=== PATIENT | female | born 1950 | race Caucasian/White ===

== ENCOUNTER 2017-01-13 00:23 | Emergency (ER) | payer MEDICARE ==
[2017-01-13 01:12] LABS: BASO % 0.1 % (0-6); EOS % 0.4 % (0-6); GRAN % 77.9 % (47-80); HEMATOCRIT 42.7 % (35.0-47.0); HEMOGLOBIN 14.1 gm/dl (11.6-16.0); LYMPH % 15.8 % (16-45); MEAN CELL VOLUME 95.1 fl (81-97); MEAN CORPUSCULAR HEMOGLOBIN 31.4 pg (27-33); MEAN PLATELET VOLUME 10.7 fl (7.4-10.4); MONO % 5.8 % (0-9); PLATELET COUNT 276 K/uL (130-400); RED BLOOD COUNT 4.49 M/uL (3.80-5.40); RED CELL DISTRIBUTION WIDTH 13.2 % (11.5-14.5); WHITE BLOOD COUNT W/O DIFF 13.8 K/uL (4.2-12.2)
[2017-01-13 01:22] LABS: ANION GAP 8.1 (7-16); BLOOD UREA NITROGEN 39 mg/dL (7-17); CARBON DIOXIDE 28.9 mmol/L (22-30); CREATININE 0.7 mg/dL (0.52-1.04); EST GLOMERULAR FILTRATION RATE > 60 ml/min; GLUCOSE,RANDOM 104 mg/dL (70-110)
--- NOTE | 2017-01-13 01:44 | Emergency Department Record ---
History of Present Illness - General Chief Complaint: Abdominal Pain Stated Complaint: BOWEL PROBLEMS Time Seen by Provider: 01/13/17 00:53 Source: Patient, Family, EMS Mode of Arrival: EMS Limitations: No limitations - History of Present Illness Initial Comments: pt states she had a procedure on her back yesterday and now is having new weakness in r leg and is having trouble walking to the point that she has fallen twice. she also says she has some weakness in her r arm. she alsome has some pain in her lower l ribs that she has had for weeks. she also c/o of constipation and no bm for 1 1/2 weeks. MD Complaint: Other Onset/Timin -: Week(s) Location: LUQ, LLQ, RLQ Radiation: None Quality: Aching, Cramping Consistency: Constant Associated Symptoms: Constipation, Vomiting, Other (r sided weakness) - Related Data Patient : No Home Medications Medication Instructions Recorded Confirmed Last Taken Albuterol Sulfate [Ventolin Hfa] 2 puff INH BID 03/03/16 01/13/17 Unknown Budesonide/Formoterol Fumarate 2 puff INH BID 03/03/16 01/13/17 Unknown [Symbicort 160-4.5 Mcg Inhaler] Hydrocodone/Acetaminophen 1 tab PO QID 03/03/16 01/13/17 Unknown [Hydrocodon-Acetaminophn 10-325] Tiotropium [place] [Spiriva] 2 puff INH BID 03/03/16 01/13/17 Unknown Aspirin, Regular 325 mg PO DAILY 01/13/17 01/13/17 01/12/17 Bupropion HCl [Wellbutrin Sr] 100 mg PO DAILY 01/13/17 01/13/17 01/12/17 Ranitidine HCl [Zantac] 150 mg PO DAILY 01/13/17 01/13/17 01/12/17 Allergies Allergy/AdvReac Type Severity Reaction Status Date / Time Penicillins Allergy HIVES Verified 03/03/16 19:01 Travel Screening - Travel/Exposure Within Last 30 Days Have you traveled within the last 30 days?: No - Travel Symptoms Symptom Screening: None Review of Systems Reviewed: No additional complaints except as noted below Constitutional: Reports: As per HPI, Weakness. Denies: Chills, Fever, Malaise, Night sweats, Weight change Eyes: Reports: As per HPI. Denies: Eye discharge, Eye pain, Photophobia, Vision change ENT: Reports: As per HPI. Denies: Congestion, Dental pain, Ear pain, Epistaxis , Hearing loss, Throat pain Respiratory: Reports: As per HPI, Cough. Denies: Dyspnea, Hemoptysis, Stridor, Wheezes Cardiovascular: Reports: As per HPI. Denies: Arrhythmia, Chest pain, Dyspnea on exertion, Edema, Murmurs, Orthopnea, Palpitations, Paroxysmal nocturnal dyspnea, Rheumatic Fever, Syncope Endocrine: Reports: As per HPI. Denies: Fatigue, Heat or cold intolerance, Polydipsia, Polyuria Gastrointestinal: Reports: As per HPI, Constipation. Denies: Abdominal pain, Diarrhea, Hematemesis, Hematochezia, Melena, Nausea, Vomiting Genitourinary: Reports: As per HPI. Denies: Abnormal menses, Discharge, Dyspareunia, Dysuria, Frequency, Hematuria, Incontinence, Retention, Urgency Musculoskeletal: Reports: As per HPI. Denies: Arthralgia, Back pain, Gout, Joint swelling, Myalgia, Neck pain Skin: Reports: As per HPI. Denies: Bruising, Change in color, Change in hair/ nails, Lesions, Pruritus, Rash Neurological: Reports: As per HPI, Abnormal gait, Weakness. Denies: Confusion, Headache, Numbness, Paresthesias, Seizure, Tingling, Tremors, Vertigo Psychiatric: Reports: As per HPI. Denies: Anxiety, Auditory hallucinations, Depression, Homicidal thoughts, Suicidal thoughts, Visual hallucinations Hematological/Lymphatic: Reports: As per HPI. Denies: Anemia, Blood Clots, Easy bleeding, Easy bruising, Swollen glands Past Medical History - SOCIAL HISTORY Smoking Status: Current every day smoker - RESPIRATORY Hx Respiratory Disorders: Yes Hx COPD: Yes - CARDIOVASCULAR Hx Cardio Disorders: Yes Hx Hypertension: Yes - NEURO Hx Neuro Disorders: No - GI Hx GI Disorders: Yes Hx Reflux: Yes - Hx Genitourinary Disorders: No - ENDOCRINE Hx Endocrine Disorders: No - MUSCULOSKELETAL Hx Musculoskeletal Disorders: Yes Comment:: Injections-to back every 1-3mos - PSYCH Hx Psych Problems: No - HEMATOLOGY/ONCOLOGY Hx Hematology/Oncology Disorders: Yes Comment:: LUPUS Family Medical History Any Significant Family History?: Yes Hx Cancer: Father *Cancer Comment: spider cancer with father and brain with uncle *Heart Comment: unlce heart attack Physical Exam - General General Appearance: Alert, Oriented x3, Cooperative, Mild distress - Head Head exam: Normal inspection - Eye Eye exam: Normal appearance, PERRL, EOMI Pupils: Normal accommodation - ENT ENT exam: Normal exam, Mucous membranes moist, Normal external ear exam, Normal orophraynx Ear exam: Normal external inspection. negative: External canal tenderness Nasal Exam: Normal inspection. negative: Discharge, Sinus tenderness Mouth exam: Normal external inspection, Tongue normal Teeth exam: Normal inspection. negative: Dental caries Throat exam: Normal inspection. negative: Tonsillar erythema, Tonsillar exudate - Neck Neck exam: Normal inspection, Full ROM. negative: Tenderness - Respiratory Respiratory exam: Normal lung sounds bilaterally. negative: Respiratory distress - Cardiovascular Cardiovascular Exam: Normal rhythm, Normal heart sounds, Tachycardia - GI/Abdominal GI/Abdominal exam: Soft, Normal bowel sounds. negative: Tenderness - Rectal Rectal exam: Deferred - exam: Deferred - Extremities Extremities exam: Normal inspection, Full ROM, Normal capillary refill. negative: Tenderness - Back Back exam: Reports: Normal inspection, Full ROM. Denies: Muscle spasm, Rash noted, Tenderness - Neurological Neurological exam: Abnormal gait, Alert, CN II-XII intact, Motor sensory deficit (3/5 strength in r leg, 4/5 strength rue), Oriented X3, Reflexes normal - Psychiatric Psychiatric exam: Normal affect, Normal mood - Skin Skin exam: Dry, Intact, Normal color, Warm Course Vital Signs 01/13/17 00:24 Temperature 98.0 F Pulse Rate [ 107 H Pulse Ox Probe] Respiratory 20 Rate Blood Pressure 192/105 [Left Arm] Pulse Ox 97 - Reevaluation(s) Reevaluation #1: 01/13/17 02:25 d/w dr matias and do who want her to go to ed for mri and then be admitted Medical Decision Making - Lab Data Result diagrams: 01/13/17 01:06 01/13/17 01:06 Lab Results 01/13/17 Range/Units 01:06 WBC 13.8 H (4.2-12.2) K/uL RBC 4.49 (3.80-5.40) M/uL Hgb 14.1 (11.6-16.0) gm/dl Hct 42.7 (35.0-47.0) % MCV 95.1 (81-97) fl MCH 31.4 (27-33) pg MCHC 33.0 (32-36) g/dl RDW 13.2 (11.5-14.5) % Plt Count 276 (130-400) K/uL MPV 10.7 H (7.4-10.4) fl Gran % 77.9 (47-80) % Lymphocytes % 15.8 L (16-45) % Monocytes % 5.8 (0-9) % Eosinophils % 0.4 (0-6) % Basophils % 0.1 (0-6) % Disposition Disposition: Transfer Clinical Impression: Weakness of right lower extremity Disposition: Acute Care Hospital Transfer Transfer To: [facility] Reason For Transfer: needs mri to r/o hematoma and further eval of neuro deficits Accepting Physician: urbano matias and do Time Discussed w/Accepting Physician: 02:29 Forms: Patient Portal Access
[2017-01-13] MEDS ORDERED: MORPHINE SULFATE 5 MG/ML PFS IVP ONE (01:48)
[2017-01-13] MEDS ORDERED: 0.9 % SODIUM CHLORIDE 1,000 ML BAG IV ONE (01:56)
[2017-01-13] MEDS ORDERED: METHYLPREDNISOLONE PF 125MG/VIAL IVP ONE (02:17)
[2017-01-13] MEDS ORDERED: DIPHENHYDRAMINE HCL IV 50 MG/ML VIAL IVP ONE (02:17)
--- NOTE | 2017-01-18 10:19 | RADIOLOGY REPORT ---
EXAM: CHEST, TWO VIEWS HISTORY: DIFFICULTY BREATHING, RIGHT SIDED WEAKNESS. TECHNIQUE: AP semi-upright and lateral views of the chest were obtained. Comparison: Two view chest dated 03/03/16. FINDINGS: The heart size is normal. The lungs appear expanded with no acute infiltrate seen. The lungs again appear hyperinflated suggesting underlying COPD. Postop changes lower cervical spine again partially seen. Minor thoracic curve to the right. IMPRESSION: 1. HYPERINFLATION SUGGESTING COPD. 2. NO ACUTE INFILTRATE EVIDENT. 3. POSTOP CHANGES LOWER CERVICAL SPINE AGAIN PARTIALLY SEEN. JOB NUMBER: [id number] [facility]
--- NOTE | 2017-01-18 10:34 | CT SCAN REPORT ---
EXAM: HEAD CT WITHOUT CONTRAST HISTORY: RIGHT SIDED WEAKNESS STARTED THIS MORNING. TECHNIQUE: Axial CT scan of the head was performed without IV contrast. A preliminary report was provided by [facility]. Comparison: None. FINDINGS: No definite acute intracranial hemorrhage identified. No focal mass effect or midline shift evident. No definite acute infarct or intracranial mass lesion is seen. Moderate generalized atrophy is present and there are chronic appearing deep white matter changes, nonspecific, but likely representing some chronic small vessel deep white matter ischemic disease. There may be a small chronic lacunar infarct in the head of the caudate nucleus on the right as well. No depressed calvarial fracture is evident. If the patient's neurologic symptoms persist, a follow-up brain MRI may be useful for further evaluation if not contraindicated. IMPRESSION: 1. 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 2. NO DEFINITE ACUTE INTRACRANIAL HEMORRHAGE OR FOCAL MASS EFFECT IDENTIFIED. JOB NUMBER: [id number] [facility]
== END 2017-01-13 02:55 | disposition short-term general hospital (02) ==
LOC: ER 00:23
DX: R53.1 Weakness (principal); R29.6 Repeated falls; R11.11 Vomiting without nausea; R10.84 Generalized abdominal pain; K59.00 Constipation, unspecified; R07.81 Pleurodynia; I10 Essential (primary) hypertension; Z72.0 Tobacco use; Z98.890 Other specified postprocedural states
CPT/HCPCS: 70450; 71020; 80048; 80329; 85025; 96374; 96375; 99285; J1200; J2930; J7030